=== PATIENT | male | born 1980 | race Caucasian/White ===

== ENCOUNTER 2021-08-25 23:30 | Emergency (ER) | payer SELFPAY ==
[~2021-08-25] VITALS: Ht 162.6 cm; Wt 77.1 kg
[2021-08-25 23:32] VITALS: BP 139/87
[2021-08-26] MEDS ORDERED: TETANUS, DIPHTHERIA, PERTUSSIS VAC/PF 0.5ML (>10YR OLD) IM ONE (00:15)
[2021-08-26] MEDS ORDERED: ACETAMINOPHEN 325MG TABLET PO ONE (00:15)
[2021-08-26] MEDS ORDERED: BACITRACIN 15GM TUBE TOP ONE (03:15)
== END 2021-08-26 03:53 | disposition home or self-care (01) ==
LOC: ER 23:53
DX: S01.01XA Laceration without foreign body of scalp, initial encounter (principal); I10 Essential (primary) hypertension; Y08.89XA Assault by other specified means, initial encounter; Y93.89 Activity, other specified; Y92.89 Other specified places as the place of occurrence of the external cause; Y99.8 Other external cause status
CPT/HCPCS: 12004; 90471; 90715; 99284